=== PATIENT | female | born 1980 | race Caucasian/White ===

== ENCOUNTER → 2017-04-01 | Outpatient (CLI) | payer OTHER ==
--- NOTE | ~2017-04-01 | US17 ---
[facility] A Service of [facility] & [facility] RADIOLOGY TEXT RESULTS PATIENT: KHOA COBIAN LOCATION: [facility] : [birth year] UNIT #: [id number] AGE: [address]: Michael Yost MD SEX: F ORDER DR: [id number] [facility] [address] [place], [place] [address] [id number] O MR#: [id number] Acc #: [id number] NAME: KHOA COBIAN : 1980 SEX: F STUDY DATE/TIME: 04/01/2017 8:44 UNIT: [facility] ROOM: STUDY DESCRIPTION: US Breast Bilateral Attending Physician: Michael Yost M.D. Referring Physician: Michael Yost M.D. Ordering Physician: Michael Yost M.D. Primary Care Physician: Michael Yost M.D. MEDICAL IMAGING REPORT This report is preliminary unless electronic signature is present EXAM Targeted ultrasound of the right and left breast, 04/01/2017 INDICATION Nipple discharge bilaterally. FINDINGS Please see bilateral diagnostic mammogram same day for results. Patients over the age of 40 are entered into a reminder system with target due date for the next mammogram. A result letter will also be sent to the patient. BIRADS: 1 Negative Dictated by... Josias Esparza M.D. THIS IS AN ELECTRONICALLY VERIFIED REPORT Josias Esparza M.D. at 04/01/2017 1:13 PM Andrea TD: 04/01/2017 09:59 JOB #: [id number] MEDICAL IMAGING REPORT Page 1 of 1 COPY
--- NOTE | ~2017-04-01 | MY6 ---
[facility] A Service of [facility] & [facility] RADIOLOGY TEXT RESULTS PATIENT: KHOA COBIAN LOCATION: [facility] : 82 UNIT #: [id number] AGE: [address]: Michael Yost MD SEX: F ORDER DR: [id number] [facility] [address] [place], [place] [address] [id number] O MR#: [id number] Acc #: [id number] NAME: KHOA COBIAN : 1980 SEX: F STUDY DATE/TIME: 04/01/2017 8:07 UNIT: [facility] ROOM: STUDY DESCRIPTION: MY Mammogram Dx Dig Akshat Attending Physician: Michael Yost M.D. Referring Physician: Michael Yost M.D. Ordering Physician: Michael Yost M.D. Primary Care Physician: Michael Yost M.D. MEDICAL IMAGING REPORT This report is preliminary unless electronic signature is present EXAM(S) 1. Bilateral digital diagnostic mammogram with CAD. 2. Bilateral targeted breast ultrasound. DATE 04/01/2017 INDICATIONS 37-year-old female complaining of chronic nipple discharge (milky) for the past 9 years. She denies a palpable abnormality. No personal history of breast cancer. Family history positive (degree relative not indicated). No prior surgeries. TECHNIQUE CC, MLO and true lateral views of the breasts were obtained and reviewed with an FDA-approved CAD device. This is her baseline study. There are no comparisons. FINDINGS Parenchyma is heterogeneously dense. This degrades sensitivity of screening mammography. The pattern is symmetric. There is no dominant nodule, mass, or suspicious cluster of microcalcifications. No skin thickening or adenopathy. Subareolar aspects of the breasts demonstrate heterogeneous breast tissue but no suspicious abnormality. Targeted ultrasound of both breasts was thereafter performed. ULTRASOUND FINDINGS: The patient is initially scanned independently by the technologist and then rescanned in my presence. RIGHT BREAST: Imaging of the subareolar right breast is negative. There is no cystic or solid mass or persistent shadowing abnormality. The subareolar ducts appear unremarkable. STS. [facility] A Service of [facility] & [facility] RADIOLOGY TEXT RESULTS PATIENT: KHOA COBIAN LOCATION: [facility] #: [id number] : [birth year] UNIT #: [id number] AGE: [address]: Michael Yost MD SEX: F ORDER DR: LEFT BREAST: Imaging of the subareolar left breast is negative. No cystic or solid mass or persistent area of abnormal shadowing. Subareolar ducts appear unremarkable. Imaging findings between mammography and ultrasound are concordant. Absent new or worsening symptoms in either breast. The patient should plan on beginning a screening mammography regimen at age 40 or sooner based upon risk factors for malignancy. These findings were discussed with the patient. She voiced understanding and agreement. IMPRESSION 1. Negative bilateral diagnostic mammogram and targeted bilateral breast ultrasound. Clinical considerations to determine additional imaging at this time. See discussion above. Patient's over the age of 40 are entered into a reminder system with target due date for the next mammogram. BIRADS: 1 Negative Dictated by... Josias Esparza M.D. THIS IS AN ELECTRONICALLY VERIFIED REPORT Josias Esparza M.D. at 04/01/2017 1:13 PM SALBADOR/gregory TD: 04/01/2017 10:27 JOB #: [id number] MEDICAL IMAGING REPORT Page 1 of 1 COPY
== END | disposition home or self-care (01) ==
LOC: CMAM 07:39
DX: N64.52 Nipple discharge (principal)
CPT/HCPCS: 76641; G0204